=== PATIENT | female | born 1965 | race African-American/Black ===

== ENCOUNTER 2022-01-21 19:13 | Inpatient (IN) | payer BC, OTHER ==
[2022-01-21 19:55] VITALS: BMI 28.1
[2022-01-21 21:12] LABS: BASO % 0.5 % (0-2.0); EOS % 3.8 % (0-4.5); HEMATOCRIT 39.2 % (32.4-45.2); HEMOGLOBIN 12.9 GM/dL (10.7-15.3); LYMPH % 38.4 % (8-40); MCH 28.6 pg (25.7-33.7); MEAN CELL VOLUME 86.9 fl (80-96); MEAN PLT VOLUME 7.2 fl (7.5-11.1); MONO % 7.2 % (3.8-10.2); NEUT % 50.1 % (42.8-82.8); PLATELET COUNT 329 10^3/uL (134-434); RBC 4.51 M/mm3 (3.60-5.2); RDW 14.7 % (11.6-15.6); WHITE BLOOD COUNT 6.7 K/mm3 (4.0-10.0)
[2022-01-21 21:20] LABS: INR 0.98 (0.83-1.09); PROTHROMBIN TIME (PATIENT) 11.3 SEC (9.7-13.0)
[2022-01-21 21:23] LABS: ACTIVATED PTT 35.7 SECONDS (25.2-36.5)
[2022-01-21 21:37] LABS: PH,URINE 7.5 (5.0-8.0); URINE APPEARANCE CLEAR; URINE BILIRUBIN NEGATIVE (NEGATIVE); URINE COLOR YELLOW; URINE GLUCOSE (UA) NEGATIVE (NEGATIVE); URINE KETONE NEGATIVE (NEGATIVE); URINE LEUK ESTERASE NEGATIVE (NEGATIVE); URINE NITRITE NEGATIVE (NEGATIVE); URINE PROTEIN NEGATIVE (NEGATIVE); URINE UROBILINOGEN 0.2 mg/dL (0.2-1.0)
[2022-01-21 21:40] LABS: CALCIUM 9.6 mg/dL (8.5-10.1)
[2022-01-21 21:41] LABS: ALBUMIN 4.2 g/dl (3.4-5.0); BLOOD UREA NITROGEN 9.3 mg/dL (7-18)
[2022-01-21 21:43] LABS: CREATININE 0.8 mg/dL (0.55-1.3)
[2022-01-21 21:45] LABS: BILIRUBIN,TOTAL 0.5 mg/dL (0.2-1); TOT PROT 7.9 g/dl (6.4-8.2)
[2022-01-21] MEDS ORDERED: ATORVASTATIN CA 20 MG TABLET (FP) PO SCH (23:13)
[2022-01-22] MEDS: ASPIRIN 81 MG CHEWABLE TABLETS PO SCH ×2 (02:04→09:57)
[2022-01-22] MEDS: HEPARIN NA (PORCINE) 5,000 UNITS/ML 1ML VIAL SQ SCH ×2 (02:05→09:57)
[2022-01-22] MEDS ORDERED: ATORVASTATIN CA 20 MG TABLET (FP) ONE (02:06)
[2022-01-22] MEDS ORDERED: HEPARIN NA (PORCINE) 5,000 UNITS/ML 1ML VIAL ONE ×2 (02:06→09:01)
[2022-01-22] MEDS ORDERED: ASPIRIN 81 MG CHEWABLE TABLETS ONE (09:01)
[2022-01-22 10:45] LABS: BASO % 0.9 % (0-2.0); EOS % 2.8 % (0-4.5); HEMATOCRIT 39.6 % (32.4-45.2); HEMOGLOBIN 13.4 GM/dL (10.7-15.3); LYMPH % 37.2 % (8-40); MCHC 33.8 g/dl (32.0-36.0); MEAN CELL VOLUME 85.7 fl (80-96); MONO % 7.2 % (3.8-10.2); NEUT % 51.9 % (42.8-82.8); PLATELET COUNT 320 10^3/uL (134-434); RBC 4.62 M/mm3 (3.60-5.2); RDW 14.3 % (11.6-15.6); WHITE BLOOD COUNT 6.2 K/mm3 (4.0-10.0)
[2022-01-22 11:10] LABS: CALCIUM 9.5 mg/dL (8.5-10.1)
[2022-01-22 11:11] LABS: ALBUMIN 3.8 g/dl (3.4-5.0); BLOOD UREA NITROGEN 7.6 mg/dL (7-18)
[2022-01-22 11:13] LABS: CREATININE 0.8 mg/dL (0.55-1.3)
[2022-01-22 11:15] LABS: BILIRUBIN,TOTAL 0.9 mg/dL (0.2-1); TOT PROT 7.6 g/dl (6.4-8.2)
[2022-01-22 20:05] VITALS: BP 107/61; PULSE 86; TEMP 98.1
== END 2022-01-22 20:07 | disposition home or self-care (01) | DRG 69 ==
LOC: JER 19:13 → JERBED 22:40 → OBSVTOIN 23:11
PROVIDERS: ADMIT Internal Medicine; ATTEND Internal Medicine
DX: G45.9 Transient cerebral ischemic attack, unspecified (principal); G50.0 Trigeminal neuralgia
CPT/HCPCS: 36415; 70450-TC; 70551-TC; 80053; 80061; 81003; 83036; 85025; 85610; 85730; 86850; 86900; 86901; 93005; 93010; 93880-TC; 99285-25; C9803-CS; G0378; J1644; U0003; U0005

== ENCOUNTER 2022-04-05 13:16 | Emergency (ER) | payer OTHER, BC ==
[2022-04-05 13:47] VITALS: BP 124/69; PULSE 89; TEMP 97.9; BMI 28.1
[2022-04-05] MEDS ORDERED: DIPHTH,PERTUSS(ACELL),TET 0.5 ML DISP.SYRIN IM ONE ×2 (15:45→15:47)
== END 2022-04-05 17:10 | disposition home or self-care (01) ==
LOC: JERFT 13:16 → JER 13:16 → JERFT 17:10
PROC: 3E0234Z Introduction of Serum, Toxoid and Vaccine into Muscle, Percutaneous Approach (ICD-10-PCS; principal; 2022-04-05)
DX: S93.331A Other subluxation of right foot, initial encounter (principal); W45.0XXA Nail entering through skin, initial encounter
CPT/HCPCS: 73630-TC-RT-FY; 90715; 99284-25